=== PATIENT | female | born 1980 | race Caucasian/White ===

== ENCOUNTER 2018-08-14 03:00 | Inpatient (IN) | payer MEDICAID ==
[~2018-08-14] VITALS: Ht 152.4 cm; Wt 61.2 kg
[~2018-08-14 03:00] MED LIST: IBUP-974 PO
[2018-08-14 03:05] VITALS: BP 108/73
--- NOTE | 2018-08-14 03:05 | NUR ---
TO BED # 11 AMBULATORY, REPORT GIVEN TO NOE PONCE
--- NOTE | 2018-08-14 03:12 | NUR ---
Dr. De Anda evaluating patient at bedside.
[2018-08-14] MEDS ORDERED: NACL 0.9% 500 ML IV ONE (03:14)
[2018-08-14] MEDS ORDERED: ONDANSETRON 4 MG/2 ML VIAL IVP ONE (03:15)
[2018-08-14] MEDS ORDERED: KETOROLAC 30 MG/ML VIAL IVP ONE (03:15)
--- NOTE | 2018-08-14 03:16 | NUR ---
PT BIB SELF C/O RT FLANK PAIN RADIATING TO ABD FOR 3 DAYS AND WORSENING TODAY W/ NAUSEA. ABD IS ROUND, SOFT, NON TENDER, ACTIVE BS X4. PT DENIES TRAUMA TO AFFECTED AREA, NO REDNESS OR BRUISING NOTED. PT LAYING IN BED, FACIAL GRIMACING, AT BEDSIDE.
--- NOTE | 2018-08-14 03:20 | NUR ---
PHLEB AT BEDSIDE FOR LAB DRAWS
--- NOTE | 2018-08-14 04:00 | NUR ---
PT LAYING IN BED C/O CONTINUED PAIN, ER MADE AWARE.
[2018-08-14 04:01] LABS: CARBON DIOXIDE 27.4 mmol/L (21-32); CREATININE 0.6 mg/dL (0.6-1.3); POTASSIUM 3.4 mmol/L (3.5-5.1)
[2018-08-14 04:06] LABS: TOTAL BILIRUBIN 0.6 mg/dL (0.0-1.0)
[2018-08-14 04:13] LABS: BASOPHILS # (AUTO) 0.1 K/uL (0.00-0.22); BASOPHILS % (AUTO) 0.7 % (0.0-2.0); EOSINOPHILS # (AUTO) 0.2 K/uL (0-0.4); EOSINOPHILS % (AUTO) 2.6 % (0.0-4.0); HEMATOCRIT 38.7 % (36-48); HEMOGLOBIN 12.7 g/dL (12.0-16.0); LYMPHOCYTES # (AUTO) 2.4 K/uL (2.5-16.5); LYMPHOCYTES % (AUTO) 29.5 % (20.5-51.1); MEAN CORPUSCULAR HEMOGLOBIN 30 pg (27-31); MEAN CORPUSCULAR HGB CONC 33 g/dL (33-37); MEAN CORPUSCULAR VOLUME 90.7 fL (80-94); MONOCYTES # (AUTO) 0.5 K/uL (0.8-1.0); MONOCYTES % (AUTO) 6.6 % (1.7-9.3); NEUTROPHILS # (AUTO) 4.9 K/uL (1.8-7.7); NEUTROPHILS % (AUTO) 60.6 % (42.2-75.2); PLATELET COUNT (AUTO) 256 K/uL (140-450); RED BLOOD CELL COUNT(AUTO) 4.27 MIL/uL (4.20-5.40); RED CELL DISTRIBUTION WIDTH 14.3 % (11.6-13.7)
[2018-08-14] MEDS ORDERED: MORPHINE SULFATE 4 MG/ML SYR IVP ONE (04:20)
--- NOTE | 2018-08-14 04:36 | NUR ---
Ultrasound at bedside.
[2018-08-14] MEDS ORDERED: DOCUSATE SODIUM 100 MG GELCAP PO PRN (05:10)
[2018-08-14] MEDS ORDERED: HYDROcodone/APAP 7.5/325 MG 1 TAB PO PRN (05:10)
[2018-08-14] MEDS: DEXT 5% /NACL 0.9% 1,000 ML IV SCH (05:10)
[2018-08-14] MEDS ORDERED: ACETAMINOPHEN 325 MG TAB PO PRN (05:10)
[2018-08-14] MEDS ORDERED: ONDANSETRON 4 MG/2 ML VIAL IM/IVP PRN (05:10)
--- NOTE | 2018-08-14 05:21 | NUR ---
X-Ray at bedside.
--- NOTE | 2018-08-14 05:30 | NUR ---
Patient will be admitted to care of DR LARIOS. Admited to [facility]. Will go to room 105-B. Belongings list completed. Report to ROSARIO BUSH.
[2018-08-14 05:36] VITALS: BP 100/44
--- NOTE | 2018-08-14 05:36 | NUR ---
REPORT RECEIVED FROM ED NURSE AT BEDSIDE. PT IN STABLE CONDITION. AAOX4. INTRODUCED SELF TO PT AND FAMILY. BOARD UPDATED. PAIN 01/27. WILL MEDICATE. NO SOB. AFEBRILE. IV SITE L AC 20G RUNNING D5NS@60ML/HR PATENT AND INTACT. SKIN WARM, DRY, AND INTACT WITH NO OPEN WOUNDS. BED LOCKED IN LOW POSITION. CALL GARG WITHIN REACH. SAFETY PRECAUTIONS IN PLACE. ALL NEEDS MET AT THIS TIME.
[2018-08-14] MEDS ORDERED: POTASSIUM CHLORIDE 10 MEQ TABER PO ONE (06:05)
--- NOTE | 2018-08-14 06:16 | NUR ---
NORCO GIVEN FOR 6/10 PAIN. KDUR GIVEN FOR LOW POTASSIUM. PT TOLERATED WELL.
--- NOTE | 2018-08-14 06:45 | NUR ---
LAB CALLED. THEY NEED A TEST AND PT NEEDS TO BE OFF OF OPIATE MEDICATIONS FOR HIDA SCAN. LAB WILL COME AT 1PM.
--- NOTE | 2018-08-14 07:00 | NUR ---
REPORT GIVEN TO AM NURSE AT BEDSIDE. PT IN STABLE CONDITION.
--- NOTE | 2018-08-14 07:01 | NUR ---
Received report from pm nurse Dawson. Pt asleep in bed, respirations even & nonlabored, FLACC 0. Spouse at bedside visiting pt. Left AC IV asymptomatic with ongoing D5NS @ 60ml/hr. Call light within reach.
[2018-08-14] MEDS ORDERED: MORPHINE SULFATE 4 MG/ML SYR IVP PRN (07:55)
[2018-08-14 08:00] VITALS: BP 91/44
[2018-08-14] MEDS ORDERED: PIPER/TAZO 3.375GM/D5W PREMIX 50 ML IV SCH (08:09)
--- NOTE | 2018-08-14 08:15 | NUR ---
Obtained urine specimen & sent to lab at this time. Pt denies any discomfort. Abd soft with active bowel sounds. Also requested urine test from Dr. Moy. Per physician, he will input order. Pt left AC IV asymptomatic with ongoing IVF. Call light within reach. Spouse remains at bedside.
[2018-08-14] MEDS: LACTOBACILLUS RHAMNOSUS GG 1 EACH CAP PO SCH (08:41)
--- NOTE | 2018-08-14 08:46 | NUR ---
PATIENT HAS BEEN SCREENED AND CATEGORIZED LOW NUTRITION RISK. PATIENT WILL BE SEEN WITHIN 7 DAYS OF ADMISSION. 08/20/[address]
[2018-08-14 09:50] LABS: APPEARANCE,URINE CLEAR (CLEAR); BILIRUBIN,URINE NEGATIVE (NEGATIVE); BLOOD, URINE TRACE-I (NEGATIVE); COLOR,URINE YELLOW (YELLOW); LEUKOCYTE ESTERASE ,URINE NEGATIVE (NEGATIVE); NITRITE, URINE NEGATIVE (NEGATIVE); UGLUCOSE NEGATIVE (NEGATIVE)
[2018-08-14] MEDS: KETOROLAC 15 MG/ML VIAL IVP PRN ×2 (09:59→16:27)
[2018-08-14 10:16] LABS: RBC,URINE 0-5 (RARE) /HPF (0-5); WBC,URINE 0-5 (RARE) /HPF (0-5)
[2018-08-14 10:18] LABS: BARBITURATE, URINE NEG. ng/ml (NEG <=200); BENZODIAZEPINE, URINE NEG. ng/mL (NEG <=200); CANNABINOID, URINE NEG. ng/mL (NEG <=50); COCAINE, URINE NEG. ng/mL (NEG <=300); OPIATE, URINE POS. ng/mL (NEG <=2000); PHENCYCLIDINE SCREEN,URINE NEG. ng/mL (NEG <=25)
[2018-08-14 11:49] LABS: CHOL/HDL RATIO 2.3 (1-4.5); MAGNESIUM 2.1 mg/dL (1.8-2.4); PHOSPHORUS 3.9 mg/dL (2.5-4.9); THYROID STIMULATING HORMONE 3.03 uIU/mL (0.34-3.74)
--- NOTE | 2018-08-14 12:41 | NUR ---
Pt left unit via wheelchair for HIDA scan, accompanied by NM tech & spouse. Left AC IV saline lock asymptomatic. IVF D5NS held.
--- NOTE | 2018-08-14 14:05 | NUR ---
Came back from HIDA scan at this time via wheelchair. Able to amb from wheelchair to bed with steady gait. No c/o discomfort at this time. Resumed D5NS @ 60ml/hr via left AC IV. Call light within reach. HIDA scan report pending.
[2018-08-14] MEDS: PIPER/TAZO 3.375GM/D5W PREMIX 50 ML IV SCH ×2 (14:11→20:09)
--- NOTE | 2018-08-14 15:37 | NUR ---
Called radiology to f/u on HIDA scan report. Per two way radio technician, she will f/u with NM tech. HIDA scan report still pending. Pt currently asleep in bed, respirations even & nonlabored in room air, FLACC 0. Spouse at bedside.
--- NOTE | 2018-08-14 15:55 | NUR ---
Spoke to Dr Lozada on the phone & notified of HIDA scan report. Per Dr Lozada, pt may go home & f/u outpatient in 2wks. Dr Cabrera (Dr Mukherjee resident) notified & states he will inform Dr Pierre.
[2018-08-14 16:00] VITALS: BP 90/40
[2018-08-14] MEDS ORDERED: PANTOPRAZOLE 40 MG TABEC PO SCH (16:30)
--- NOTE | 2018-08-14 17:45 | NUR ---
Pt sitting up in bed, eating dinner. No c/o discomfort. Respirations even & nonlabored in room air. Left AC IV intact with ongoing D5NS @ 60ml/hr. Call light within reach. Spouse at bedside.
--- NOTE | 2018-08-14 19:15 | NUR ---
Bedside report given to pm nurse Dawson.
--- NOTE | 2018-08-14 19:16 | NUR ---
REPORT RECEIVED FROM AM NURSE AT BEDSIDE. PT IN STABLE CONDITION. AAOX4. INTRODUCED SELF TO PT AND FAMILY. BOARD UPDATED. PT IS PRIMARILY TANZANIAN SPEAKING. NO COMPLAINTS OF PAIN. NO SOB. PT HAS COMPLAINTS OF NAUSEA. WILL MEDICATE. IV SITE L AC 20G RUNNING D5NS@60ML/HR PATENT AND INTACT. SKIN WARM, DRY, AND INTACT WITH NO OPEN WOUNDS. BED LOCKED IN LOW POSITION. CALL GARG WITHIN REACH. SAFETY PRECAUTIONS IN PLACE.
--- NOTE | 2018-08-14 20:09 | NUR ---
MANOJ WALL AND RUNNING. PT TOLERATING WELL. Addendum: 08/14/18 at 2116 by Dawson Reynoso RN ZOFRAN GIVEN FOR NAUSEA IVP.
--- NOTE | 2018-08-14 22:30 | NUR ---
PT LAYING IN BED TRYING TO SLEEP. PT AROUSEABLE. NO S/S OF DISTRESS NOTED.
[2018-08-15] VITALS: BP 98/43
[2018-08-15] MEDS: DEXT 5% /NACL 0.9% 1,000 ML IV SCH (00:28)
--- NOTE | 2018-08-15 00:45 | NUR ---
PT SLEEPING COMFORTABLY SUPINE. NO S/S OF DISTRESS NOTED. NO COMPLAINTS OF PAIN. NO N/V. NO SOB. NO FEVER. WILL CONTINUE TO MONITOR.
--- NOTE | 2018-08-15 01:30 | NUR ---
REPORT GIVEN TO PANCHO RN AT BEDSIDE. PT IN STABLE CONDITION.
--- NOTE | 2018-08-15 04:00 | NUR ---
VITAL SIGNS WITHIN NORMAL LIMITS. DENIES PAIN, NO SIGNS OF DISTRESS NOTED AT THIS TIME. PT POSITIONED FOR COMFORT. BED IN LOWEST POSITION, BED ALARM ON. CALL LIGHT WITHIN REACH, WILL CONTINUE TO MONITOR.
[2018-08-15] MEDS: PIPER/TAZO 3.375GM/D5W PREMIX 50 ML IV SCH (04:59)
[2018-08-15 06:05] LABS: T4 (THYROXINE) 10.8 ug/dL (4.5-12.0)
--- NOTE | 2018-08-15 07:37 | NUR ---
ENDORSED PT TO DAY SHIFT RN LEWIS FOR CONTINUITY OF CARE. PT IN STABLE CONDITION.
--- NOTE | 2018-08-15 07:38 | NUR ---
Received report from pm nurse Mary. Pt lying supine in bed, awake, verbally responsive in armenian, no signs of acute distress. Call light within reach. Left AC IV asymptomatic with ongoing NS @ 60ml/hr.
[2018-08-15 08:00] VITALS: BP 94/50
[2018-08-15 08:06] LABS: BASOPHILS # (AUTO) 0.1 K/uL (0.00-0.22); EOSINOPHILS # (AUTO) 0.1 K/uL (0-0.4); EOSINOPHILS % (AUTO) 2.3 % (0.0-4.0); HEMATOCRIT 35.5 % (36-48); HEMOGLOBIN 11.7 g/dL (12.0-16.0); LYMPHOCYTES # (AUTO) 1.7 K/uL (2.5-16.5); LYMPHOCYTES % (AUTO) 29.1 % (20.5-51.1); MEAN CORPUSCULAR HEMOGLOBIN 30 pg (27-31); MEAN CORPUSCULAR HGB CONC 33 g/dL (33-37); MEAN CORPUSCULAR VOLUME 91.5 fL (80-94); MONOCYTES # (AUTO) 0.3 K/uL (0.8-1.0); NEUTROPHILS # (AUTO) 3.6 K/uL (1.8-7.7); NEUTROPHILS % (AUTO) 61.6 % (42.2-75.2); PLATELET COUNT (AUTO) 237 K/uL (140-450); RED BLOOD CELL COUNT(AUTO) 3.88 MIL/uL (4.20-5.40); RED CELL DISTRIBUTION WIDTH 14.5 % (11.6-13.7); WHITE BLOOD COUNT (AUTO) 5.8 K/uL (4.8-10.8)
[2018-08-15] MEDS: KETOROLAC 15 MG/ML VIAL IVP PRN (08:36)
[2018-08-15] MEDS: LACTOBACILLUS RHAMNOSUS GG 1 EACH CAP PO SCH (08:36)
[2018-08-15] MEDS ORDERED: PANTOPRAZOLE 40 MG TABEC PO SCH (09:00)
[2018-08-15 09:16] LABS: ANION GAP 10.6 (8-16); CARBON DIOXIDE 28.4 mmol/L (21-32); CREATININE 0.6 mg/dL (0.6-1.3)
[2018-08-15 09:19] LABS: PHOSPHORUS 3.6 mg/dL (2.5-4.9)
--- NOTE | 2018-08-15 11:24 | NUR ---
Pt c/o 5 right upper back pain. Respirations even & nonlabored in room air. Ibuprofen 400mg 2tabs (total 800mg) administered. Ruben crackers given to prevent stomach upset. Call light within reach.
[2018-08-15] MEDS ORDERED: IBUPROFEN 400 MG TAB ONE (11:29)
[2018-08-15] MEDS ORDERED: IBUPROFEN 800 MG TAB PO SCH (11:30)
--- NOTE | 2018-08-15 12:24 | NUR ---
Pt sitting up in bed, eating lunch. No c/o discomfort at this time. Respirations even & nonlabored in room air. Call light within reach.
--- NOTE | 2018-08-15 13:00 | NUR ---
Written & verbal discharge instructions provided to pt & spouse Chandler, both verbalized understanding. Left AC IV discontinued. Pt able to change into personal clothes without difficulty.
--- NOTE | 2018-08-15 13:15 | NUR ---
Name band removed. Pt discharged to home at this time. Able to amb off unit with steady gait, accompanied by spouse. All belongings with pt upon departure.
== END 2018-08-15 13:15 | disposition home or self-care (01) ==
LOC: MED 03:00 → MTU 05:10
PROVIDERS: ADMIT General Practice; ATTEND General Practice
DX: K80.62 Calculus of gallbladder and bile duct with acute cholecystitis without obstruction (principal); E86.0 Dehydration; Z98.891 History of uterine scar from previous surgery
CPT/HCPCS: 36415; 71045; 76705; 78445; 80048; 80053; 80305; 81001; 81025; 82150; 83036; 83690; 83735; 83880; 84100; 84436; 84439; 84443; 84479; 84484; 85025; 85610; 85730; 87081; 93005; 96361; 96374; 96375; 99285; J1885; J2270; J2405; J2543; J7042; Q0092

== ENCOUNTER 2018-09-17 04:53 | Emergency (ER) | payer MEDICAID ==
[~2018-09-17] VITALS: Ht 152.4 cm; Wt 61.2 kg
[2018-09-17 04:53] VITALS: BP 111/64
--- NOTE | 2018-09-17 04:53 | NUR ---
TO BED # 7 AMBULATORY, REPORT GIVEN TO JESS PONCE
--- NOTE | 2018-09-17 05:00 | NUR ---
FIRST CONTACT WITH PATIENT PATIENT AMBULATED TO ER BED 7, C/O ABD PAIN X 3 DAYS, STATES R FLANK PAIN RADIATING TO THE BACK. PATIENT DENIES ANY VOMITING OR DIARRHEA, BUT DOES STATES +NAUSEA. PATIENT GCS 15, AAOX4, BREATHING IS EVEN AND UNLABORED, EQUAL RISE AND FALL OF CHEST. PATIENT HR 70-85 BPM, ON CM, PATIENT DENIES ANY CP/SOB. IV EST 18G TO LAC, C/D/P. NO ACUTE DISTRESS NOTED. PATIENT UPDATED WITH PLAN OF CARE, WILL CONTINUE TO MONITOR
--- NOTE | 2018-09-17 05:30 | NUR ---
DR JOSHI AT BEDSIDE
[2018-09-17 05:44] LABS: ANION GAP 13.4 (8-16); CREATININE 0.5 mg/dL (0.6-1.3); POTASSIUM 3.4 mmol/L (3.5-5.1)
[2018-09-17 05:45] LABS: BILIRUBIN,URINE NEGATIVE (NEGATIVE); BLOOD, URINE 2+ (NEGATIVE); COLOR,URINE YELLOW (YELLOW); LEUKOCYTE ESTERASE ,URINE NEGATIVE (NEGATIVE); NITRITE, URINE NEGATIVE (NEGATIVE); UGLUCOSE NEGATIVE (NEGATIVE)
[2018-09-17 05:46] LABS: APPEARANCE,URINE SLIGHTLY HAZY (CLEAR); RBC,URINE NONE SEEN /HPF (0-5); WBC,URINE 0-5 (RARE) /HPF (0-5)
[2018-09-17 05:55] LABS: BASOPHILS # (AUTO) 0.1 K/uL (0.00-0.22); BASOPHILS % (AUTO) 0.9 % (0.0-2.0); EOSINOPHILS # (AUTO) 0.2 K/uL (0-0.4); EOSINOPHILS % (AUTO) 2.6 % (0.0-4.0); HEMATOCRIT 37.7 % (36-48); HEMOGLOBIN 12.4 g/dL (12.0-16.0); LYMPHOCYTES # (AUTO) 2.5 K/uL (2.5-16.5); LYMPHOCYTES % (AUTO) 38.5 % (20.5-51.1); MEAN CORPUSCULAR HEMOGLOBIN 30 pg (27-31); MEAN CORPUSCULAR HGB CONC 33 g/dL (33-37); MEAN CORPUSCULAR VOLUME 90.1 fL (80-94); MONOCYTES # (AUTO) 0.4 K/uL (0.8-1.0); MONOCYTES % (AUTO) 6.1 % (1.7-9.3); NEUTROPHILS # (AUTO) 3.3 K/uL (1.8-7.7); NEUTROPHILS % (AUTO) 51.9 % (42.2-75.2); PLATELET COUNT (AUTO) 225 K/uL (140-450); RED BLOOD CELL COUNT(AUTO) 4.19 MIL/uL (4.20-5.40); RED CELL DISTRIBUTION WIDTH 14.3 % (11.6-13.7); WHITE BLOOD COUNT (AUTO) 6.4 K/uL (4.8-10.8)
[2018-09-17] MEDS ORDERED: NACL 0.9% 1,000 ML IV ONE (05:55)
[2018-09-17] MEDS ORDERED: ONDANSETRON 4 MG/2 ML VIAL IVP ONE (05:55)
[2018-09-17] MEDS ORDERED: PANTOPRAZOLE 40 MG INJ VIAL IVP ONE (05:55)
--- NOTE | 2018-09-17 06:07 | NUR ---
XRAY AT BEDSIDE
[2018-09-17] MEDS ORDERED: KETOROLAC 30 MG/ML VIAL IVP ONE (06:25)
[2018-09-17 07:07] VITALS: BP 101/55
--- NOTE | 2018-09-17 07:07 | NUR ---
Patient discharged with v/s stable. Written and verbal after care instructions given and explained. Patient alert, oriented and verbalized understanding of instructions. Ambulatory with steady gait. All questions addressed prior to discharge. ID band removed. Patient advised to follow up with PMD. Rx of ZOFRAN ODT, OMEPRAZOLE, SENOKOT given. Patient educated on indication of medication including possible reaction and side effects. Opportunity to ask questions provided and answered.
== END 2018-09-17 07:07 | disposition home or self-care (01) ==
LOC: MED 04:53
DX: K21.9 Gastro-esophageal reflux disease without esophagitis (principal); Z79.899 Other long term (current) drug therapy
CPT/HCPCS: 36415; 74018; 80048; 81001; 81025; 83690; 85025; 96374; 96375; 99284; C9113; J1885; J2405; J7030

== ENCOUNTER 2022-08-08 19:01 | Emergency (ER) | payer MEDICAID ==
[~2022-08-08] VITALS: Ht 157.5 cm; Wt 63.5 kg
[2022-08-08 19:07] VITALS: BP 112/74
[2022-08-08] MEDS ORDERED: KETOROLAC 30 MG/ML VIAL IM ONE (19:20)
--- NOTE | 2022-08-08 19:23 | NUR ---
Blood for labwork drawn from RIGHT ARM per FOAM RUBBER MIXER. Patient tolerated WELL.
[2022-08-08] MEDS ORDERED: NAPR-54 PO (19:56)
[2022-08-08] MEDS ORDERED: CYCL-711 PO (19:56)
[2022-08-08] MEDS ORDERED: KETOROLAC 30 MG/ML VIAL ONE (20:30)
[2022-08-08 20:35] VITALS: BP 112/74
--- NOTE | 2022-08-08 20:35 | NUR ---
Patient discharged with v/s stable. Written and verbal after care instructions given and explained. Patient alert, oriented and verbalized understanding of instructions. Ambulatory with steady gait. All questions addressed prior to discharge. ID band removed. Patient advised to follow up with PMD. Rx of FLEXERIL, NAPROSYN given. Patient educated on indication of medication including possible reaction and side effects. Opportunity to ask questions provided and answered.
== END 2022-08-08 20:35 | disposition home or self-care (01) ==
LOC: MED 19:01
DX: R07.89 Other chest pain (principal); Z79.899 Other long term (current) drug therapy
CPT/HCPCS: 36415; 71045; 84484; 96372; 99284; J1885

== ENCOUNTER 2023-02-13 10:26 | Emergency (ER) | payer MEDICAID ==
[~2023-02-13] VITALS: Ht 152.4 cm; Wt 59.0 kg
[~2023-02-13 10:26] MED LIST changes: +CYCL-711 PO; +NAPR-54 PO
[2023-02-13 10:42] VITALS: BP 116/56; PULSE 80; RESP 18; TEMP 98; O2SAT 99
[2023-02-13] MEDS ORDERED: KETOROLAC 30 MG/ML VIAL IM ONE (11:10)
[2023-02-13] MEDS ORDERED: LID5T TP (12:03)
[2023-02-13] MEDS ORDERED: GABA100C PO (12:03)
[2023-02-13] MEDS ORDERED: IBUP-2213 PO (12:03)
[2023-02-13] MEDS ORDERED: CYCL-711 PO (12:03)
--- NOTE | 2023-02-13 12:24 | NUR ---
Patient discharged with v/s stable. Written and verbal after care instructions given and explained. Patient alert, oriented and verbalized understanding of instructions. Ambulatory with steady gait. All questions addressed prior to discharge. ID band removed. Patient advised to follow up with PMD. Rx of LIDODERM, MOTRIN, NEURONTIN given. Patient educated on indication of medication including possible reaction and side effects. Opportunity to ask questions provided and answered.
== END 2023-02-13 12:24 | disposition home or self-care (01) ==
LOC: MED 10:26
DX: S16.1XXA Strain of muscle, fascia and tendon at neck level, initial encounter (principal); M54.12 Radiculopathy, cervical region; M25.512 Pain in left shoulder; X58.XXXA Exposure to other specified factors, initial encounter; Y93.89 Activity, other specified; Y92.89 Other specified places as the place of occurrence of the external cause; Y99.8 Other external cause status
CPT/HCPCS: 72040; 73030; 96372; 99284; J1885